=== PATIENT | female | born 1980 | race Caucasian/White ===

== ENCOUNTER 2019-02-20 00:54 | Outpatient (CLI) | payer BC, SELFPAY ==
--- NOTE | 2019-02-20 13:22 | DI.MAMMO_ITS ---
EXAM: MAMMO SCREENING CLINICAL HISTORY: SCREENING Z12.31 TECHNIQUE: Mammograms were interpreted according to the usual protocol including computer analysis w [employer] CAD system, tomosynthesis and C-view imaging. COMPARISON: Baseline. FINDINGS: The breasts are heterogeneously dense. No dominant mass or clumped microcalcification identified in either breast. Today's examination is a baseline examination. IMPRESSION: No specific evidence of malignancy at this time. Routine screening examinations are suggested at year ly intervals in this age group according to the ACS/ACR guidelines. Category 1. Breast density, categ ory C. BI-RADS Cat 1 - Negative. Breast Density - Category C - Heterogeneously dense.
== END 2019-02-20 01:14 ==
PROVIDERS: PCP Internal Medicine; Visit Provider Nurse Practitioner Women's Health
DX: Z12.31 Encounter for screening mammogram for malignant neoplasm of breast (principal)
CPT/HCPCS: 77063; 77067

== ENCOUNTER 2019-06-30 13:17 | Outpatient (CLI) | payer BC, SELFPAY ==
--- NOTE | 2019-06-30 13:00 | DI.RAD_ITS ---
EXAM: XR KNEE LT 3V AP,LAT,JOÃO INDICATION: L knee pain. COMPARISON: LEFT KNEE 3 VIEW COMPLETE from 10/25/2010 TECHNIQUE: 2D digital imaging was performed. FINDINGS: Hardware is again noted in the proximal tibia. There is prominent periarticular spurring from the fe moral condyles. Spurring is also noted at the tibial spines. There is slight deformity of the later al tibial plateau related to the old tibial plateau fracture. Spurring is also noted at the articula r aspect of the patella. IMPRESSION: Postsurgical and degenerative changes. DATA REPOSITORY: RADIATION DOSE DELIVERED:
== END 2019-06-30 13:37 ==
PROVIDERS: PCP Internal Medicine; Visit Provider Physician Assistant
DX: M25.562 Pain in left knee (principal); M17.12 Unilateral primary osteoarthritis, left knee; Z98.890 Other specified postprocedural states
CPT/HCPCS: 73562

== ENCOUNTER 2021-07-18 14:24 | Outpatient (REF) | payer BC, SELFPAY ==
--- NOTE | 2021-07-18 13:30 | PAPFT_PTH ---
PATIENT: Shaila Curtis LOC: [facility]#:[id number] AGE/SX: 41/F ROOM: RE07/18/[address]: Barb Garnett : 1980 BED: DIS: 07/18/2021 SPEC #: [id number] RECD: 07/19/21 12:53 STATUS: CUCA REIssa #: [id number] CESAR: 07/18/21 13:[address]: Barb Garnett DEPT: [facility] Cytology RECD BY: Namrata Patino Tissues: 1 - CX/ENDOCX FOR PAP SMEARS Procedures: PAP THIN PREP/UVM Screening HPV DNA PROBE Comments: [id number]
[2021-07-18 21:13] LABS: Calculated LDL 128 mg/dL (<100); Cholesterol 208 mg/dL (<200); HDL Cholesterol 44 mg/dL (40-60); Triglyceride 182 mg/dL (<150)
== END 2021-07-18 14:25 | disposition home or self-care (01) ==
LOC: NCHCN 14:24
PROVIDERS: PCP Nurse Practitioner Family; Visit Provider Nurse Practitioner Family
DX: Z12.4 Encounter for screening for malignant neoplasm of cervix (principal); Z11.51 Encounter for screening for human papillomavirus (HPV); Z00.00 Encounter for general adult medical examination without abnormal findings; N20.0 Calculus of kidney
CPT/HCPCS: 80061; 88142; 87624

== ENCOUNTER 2021-11-21 16:46 | Outpatient (REF) | payer BC, SELFPAY ==
[2021-11-22 15:21] LABS: Chlamydia Result Negative (Negative); GC Result Negative (Negative)
== END 2021-11-21 16:47 | disposition home or self-care (01) ==
LOC: LBN 16:46
PROVIDERS: PCP Nurse Practitioner Family; Visit Provider Obstetrics & Gynecology
DX: Z11.3 Encounter for screening for infections with a predominantly sexual mode of transmission (principal); Z30.430 Encounter for insertion of intrauterine contraceptive device
CPT/HCPCS: 87491; 87591

== ENCOUNTER → 2023-08-01 03:31 | Outpatient (CLI) | payer BC, SELFPAY ==
--- NOTE | 2023-08-01 | DI.MAMMO_ITS ---
Exam(s) MAMMO SCREENING EXAM: MAMMO SCREENING 2019 CLINICAL HISTORY: Z12.31 Encounter for screening mammogram for malignant neoplasm of breast TECHNIQUE: Mammograms were interpreted according to the usual protocol including computer analysis w ith CAD system, tomosynthesis and C-view imaging. COMPARISON: 2019 FINDINGS: The breasts are composed of heterogeneously dense fibroglandular densities, Breast Density category C . No suspicious masses or suspicious microcalcifications are seen. No skin thickening or abnormal axillary lymph nodes are seen. There has been no significant change from prior exams. IMPRESSION: BI-RADS Category 1, Negative mammogram. Yearly screening mammography is recommended. Breast Density Category C, heterogeneously Dense. The mammogram demonstrates the patient's breast tissue is dense. Dense breast tissue is very common a nd is not abnormal but dense breast tissue can make it harder to find cancer on a mammogram. Also, de nse breast tissue may increase breast cancer risk. This information about the result of the mammogram report was provided to the patient to raise their awareness. Use this report when you speak with the patient about their risks for breast cancer, which includes their family history. At that time, you may recommend additional screening tests (Ultrasound or MRI) as they might be useful based on their r isk. A negative radiographic report should not delay biopsy if a dominant or clinically suspicious mass is present. Up to ten percent of cancers are not identified on mammography. A negative report may reinforce clinical impression. Adenosis and dense breasts may obscure an underlying neoplasm. False positive reports average 6 to 10%.
== END ==
PROVIDERS: PCP Nurse Practitioner Family; Visit Provider Nurse Practitioner Family
DX: Z12.31 Encounter for screening mammogram for malignant neoplasm of breast (principal)
CPT/HCPCS: 77063; 77067

== ENCOUNTER 2023-10-16 12:23 | Outpatient (REF) | payer BC, SELFPAY ==
--- NOTE | 2023-10-16 13:45 | SKI_PTH ---
PATIENT: Shaila Curtis LOC: [facility]#:[id number] AGE/SX: 43/F ROOM: RE10/16/[address]: Barb Garnett : 1980 BED: DIS: 10/16/2023 SPEC #: [id number] RECD: 10/17/23 12:48 STATUS: CUCA REIssa #: [id number] CESAR: 10/16/23 13:[address]: Barb Garnett DEPT: Surgical Specimen RECD BY: Namrata Patino Tissues: 1 - SKIN BIOPSY(SHAVE/PUNCH) 2 - SKIN BIOPSY(SHAVE/PUNCH) Procedures: IMMUNOPEROXIDASE STAIN SKIN LEVEL 4 Comments: [id number]
== END 2023-10-16 12:24 | disposition home or self-care (01) ==
LOC: NCHCN 12:23
PROVIDERS: PCP Nurse Practitioner Family; Visit Provider Nurse Practitioner Family
DX: D22.72 Melanocytic nevi of left lower limb, including hip (principal); D23.72 Other benign neoplasm of skin of left lower limb, including hip
CPT/HCPCS: 88305; 88361

== ENCOUNTER 2024-08-25 00:20 | Outpatient (CLI) | payer BC, SELFPAY ==
--- NOTE | 2024-08-25 | DI.MAMMO_ITS ---
Exam(s) MAMMO SCREENING EXAM: MAMMO SCREENING CLINICAL HISTORY: SCREENING MAMMO, Z12.31 TECHNIQUE: Mammograms were interpreted according to the usual protocol including computer analysis w [employer] CAD system, tomosynthesis and C-view imaging. COMPARISON: 2018 and 2023 FINDINGS: The breasts are composed of scattered fibroglandular densities, Breast Density category B. No suspicious masses or suspicious microcalcifications are seen. No skin thickening or abnormal axillary lymph nodes are seen. There has been no significant change from prior exams. IMPRESSION: BI-RADS Category 1, Negative mammogram Yearly screening mammography is recommended. Breast Density - Category B, scattered fibroglandular densities. A negative radiographic report should not delay biopsy if a dominant or clinically suspicious mass is present. Up to ten percent of cancers are not identified on mammography. A negative report may reinforce clinical impression. Adenosis and dense breasts may obscure an underlying neoplasm. False positive reports average 6 to 10%. Patient will receive a letter notifying them of these results.
== END 2024-08-25 00:40 ==
LOC: DI 00:20
PROVIDERS: PCP Nurse Practitioner Family; Visit Provider Nurse Practitioner Family
DX: Z12.31 Encounter for screening mammogram for malignant neoplasm of breast (principal); R92.323 Mammographic fibroglandular density, bilateral breasts
CPT/HCPCS: 77063; 77067

== ENCOUNTER 2024-09-01 13:43 | Outpatient (CLI) | payer BC, SELFPAY ==
--- NOTE | 2024-09-01 13:00 | DI.RAD_ITS ---
Exam(s) XR KNEE LT 4V AP,LAT,JOÃO,PAT EXAM: XR KNEE LT 4V AP,LAT,JOÃO,PAT CLINICAL HISTORY: LEFT KNEE PAIN. TECHNIQUE: 2D digital imaging was performed. Three views. COMPARISON: CR LEFT KNEE 3 VIEW COMPLETE from 10/25/2010 CR XR KNEE LT 3V AP,LAT,JOÃO from 06/30/2019 FINDINGS: BONES: No acute fracture is present. No bony destructive lesion is seen. There is stable positioni ng of the previously noted hardware in the proximal tibia. Prominent periarticular spurring is again noted throughout the knee. JOINTS: There is again irregularity at the lateral tibial plateau late old fracture. No joint effusi on is seen. SOFT TISSUE: Normal. IMPRESSION: Degenerative changes throughout the knee. DATA REPOSITORY: RADIATION DOSE DELIVERED:
== END 2024-09-01 13:44 | disposition home or self-care (01) ==
LOC: DIORS 13:44
PROVIDERS: PCP Nurse Practitioner Family; Referring Provider Nurse Practitioner Family; Visit Provider Student in an Organized Health Care Education/Training Program
DX: M17.32 Unilateral post-traumatic osteoarthritis, left knee (principal)
CPT/HCPCS: 73564

== ENCOUNTER 2024-10-21 09:47 | Day surgery (SDC) | payer BC, SELFPAY ==
[2024-10-21 10:11] VITALS: BP 110/76; PULSE 82; RESP 14; TEMP 36.4; O2SAT 98
[2024-10-21] MEDS: Lactated Ringers 1,000 ML 80 ML IV (10:30)
[2024-10-21] MEDS: Celecoxib 200 MG CAP 400 MG PO (10:36)
[2024-10-21] MEDS: Acetaminophen 500 MG TAB 1000 MG PO (10:36)
--- NOTE | 2024-10-21 10:40 | W.PREOPHP ---
Assessment and Plan Assessment and plan (1) Loose body in knee, left knee: Status: Acute (2) Post-traumatic osteoarthritis of left knee: Status: Acute Assessment and plan: Shaila is a 44-year-old active female who has known posttraumatic arthritis but has unfortunate developed mechanical catching and locking consistent with a loose body. Given the symptoms I recommend we proceed with arthroscopic loose body removal. I would also evaluate the meniscus for any loose or displaced fragments and treat this at the same time. The main goal is simply to stop this mechanical locking which is limiting her ability to function. I was very honest with Shaila that this does carry with the risk of potential arthritic progression and increase in baseline pain. I also discussed other risks such as bleeding, infection, stiffness, blood clot. Despite these risk, she elects to proceed. History of Present Illness Narrative: Shaila is a 44-year-old female who has known posttraumatic arthritis about the left knee from previous tibial plateau fracture and subsequent surgery. She has been managed with her arthritic pain with injections but more recently developed a mechanical catching and locking sensation indicative of loose body. Given the dysfunction this causes when it locks I recommend proceeding with arthroscopic loose body removal. She also has a known meniscal tear in the lateral side the knee which could also be causing some of the symptoms. She has known arthritis and thus the goal was simply to remove the impending loose body causing these mechanical symptoms. She has no other changes to her history. She has no recent sick contacts. No chest pain or shortness of breath Review of Systems All systems reviewed & are unremarkable except as noted in HPI and below PFSH All Active Problems Loose body in knee, left knee (Acute) Screening and evaluation for female sterilization (Acute) Post-traumatic osteoarthritis of left knee (Acute) Depo-Medrol injection: 08/20/23; 08/14/22; 02/13/2022; 07/29/21; 01/21/2021; 07/19/2020; 01/22/20 Recent Synvisc injection: 01/15/20 Medical History Bone spur Surgical History History of repair of ACL (R) Tibial plateau fracture, left (~09/2009) s/p ORIF Social History Smoking/Tobacco Use Status: Never Smoking risk assessment performed?: Yes Alcohol Intake: never Drug use: Never Substance use type: does not use Housing: house Current gender identity: female Do you feel safe at home: Yes Do you feel safe in your relationship?: Yes Female Reproductive History Menstrual Age of Menarche: 12 control method: progesterone injection History History 0 Para Hx # Term Pregnancies Multiple births Hx # Pregnancies Ectopic pregnancies AB induced Hx Number of Living Children AB spontaneous Meds Allergies and Home Medications Allergies Allergy/AdvReac Type Severity Reaction Status Date / Time No Known Allergies Allergy Verified 10/21/24 10:06 Home Medications ?Medication ?Instructions ?Recorded ?Confirmed ?Type multivitamin (Daily Multi-Vitamin 1 tab PO DAILY 09/15/21 10/21/24 History tablet) levonorgestrel 21 mcg/24 hr (up to 1 device intrauterine ONCE 11/21/21 10/21/24 History 8 years) 52 mg intrauterine device (Mirena) Exam Const General: cooperative, healthy appearing, comfortable and no acute distress Resp Effort & Inspection: normal respiratory effort Auscultation: clear to auscultation bilaterally Cardio Rate: regular rate Rhythm: regular rhythm Results Last Vital Signs Temp 36.4 C L 10/21/24 10:11 Pulse 82 10/21/24 10:11 Resp 14 10/21/24 10:11 BP 110/76 10/21/24 10:11 Pulse Ox 98 10/21/24 10:11
--- NOTE | 2024-10-21 10:58 | W.ANESPRE ---
General Info Date of Service Date Performed: 10/21/24 Height: 5 ft 2 in Weight: 51.1 kg Body Mass Index (BMI): 20.6 Surgical Procedure: Operation Date: 10/21/24 13:10 Proposed Procedure Side Surgeon p Knee Arthroscopy, Loose Body Removal Left Ja Huertas MD Meds Allergies and Home Medications Allergies Allergy/AdvReac Type Severity Reaction Status Date / Time No Known Allergies Allergy Verified 10/21/24 10:06 Home Medication ?Medication ?Instructions ?Recorded multivitamin (Daily Multi-Vitamin 1 tab PO DAILY 09/15/21 tablet) levonorgestrel 21 mcg/24 hr (up to 1 device intrauterine ONCE 11/21/21 8 years) 52 mg intrauterine device (Mirena) Current Visit Medications: Current Medications Generic Name Dose Route Start Last Admin Trade Name Freq PRN Reason Stop Dose Admin Acetaminophen 1,000 mg 10/21/24 06:00 10/21/24 10:36 Acetaminophen 500 Mg Tab PO 10/21/24 23:59 1,000 mg PREOP BETTYE Administration Celecoxib 400 mg 10/21/24 06:00 10/21/24 10:36 Celecoxib 200 Mg Cap PO 10/21/24 23:59 400 mg PREOP BETTYE Administration Ringer's Solution 1,000 mls @ 80 mls/hr 10/21/24 06:00 10/21/24 10:30 IV 10/21/24 23:59 80 mls/hr INFUSION BETTYE Administration Cefazolin Sodium/Dextrose 2 gm in 50 mls @ 100 mls/hr 10/21/24 06:00 Ancef Duplex IVPB 10/21/24 23:59 PREOP BETTYE Tranexamic Acid/Sodium Chloride 1,000 mg in 100 mls @ 600 mls/hr 10/21/24 06:00 IVPB 10/21/24 23:59 PREOP BETTYE IV Miscellaneous Supplies 1 each 10/21/24 06:00 Iv Access IV 10/21/24 23:59 DIRECTED BETTYE Sodium Chloride 0 ml 10/21/24 06:00 Normal Saline Flush 10 Ml Syr IV 10/21/24 23:59 PRN PRN Sodium Chloride 0 ml 10/21/24 06:00 Normal Saline 10 Ml Vial IJ 10/21/24 23:59 DIRECTED PRN Sterile Water 0 ml 10/21/24 06:00 Water,Injection,Sterile 10 Ml Vial IJ 10/21/24 23:59 DIRECTED PRN PFSH Active Problems Active Problems: Problem Status Onset Code Loose body in knee, left knee Acute M23.42 Screening and evaluation for female sterilization Acute Z30.09 Post-traumatic osteoarthritis of left knee Acute M17.32 Medical History Medical History Bone spur Surgical History Surgical History History of repair of ACL (R) Tibial plateau fracture, left (~09/2009) s/p ORIF Tobacco Smoking/Tobacco Use Status: Never Passive smoking exposure: Yes Alcohol Alcohol Intake: never Substance Use Substance use: Never Substance use type: does not use Prental History History 0 Para Hx # Term Pregnancies Multiple births Hx # Pregnancies Ectopic pregnancies AB induced Hx Number of Living Children AB spontaneous Vital Signs and Lab Results Vital Signs Most Recent Vital Signs in EMR: Most Recent Vital Signs Temp Pulse Resp BP Pulse Ox 36.4 C L 82 14 110/76 98 10/21/24 10:11 10/21/24 10:11 10/21/24 10:11 10/21/24 10:11 10/21/24 10:11 Anesthesia Assessment and Plan Anesthesia History Personal History: PONV Family History: No Family History of Anesthesia Complications Exercise Tolerance Exercise Tolerance: Metabolic Equivalents>4 Pertinent Negatives Pertinent Negatives: No Symptoms of GERD, No Major Cardiovascular Symptoms or Complaints, No Major Pulmonary Symptoms or Complaints and No History of CVA/TIA Cardiac & Pulmonary Exam Cardiac Exam: Normal S1/S2 Heart Sounds Pulmonary Exam: Clear Bilateral Breath Sounds Implantable Cardiac Device Does patient have a Pacemaker or an ICD?: No Airway Exam Known Difficult Airway: No Mallampati Class: 1 Mouth Opening: Normal (> 3cm) Thyromental Distance: Greater than 3 cm Neck Range of Motion: Full ROM Neck Circumference: Normal Teeth Condition: Normal Dentition ASA Classification ASA Score: ASA 1 Emergency Case?: No NPO Status NPO Status: NPO Clears >2 hours, Solids >8 hours Status Status: Not Per Patient and Pt. refuses testing, she was counseled on anesthesia risks Anesthesia Plan Resuscitation Status: Full Code Anesthesia Technique: General Anesthesia Airway Planned: LMA Monitors Used: Standard Monitors
[2024-10-21 11:01] VITALS: BMI 20.6
[2024-10-21] MEDS: ceFAZolin 2 GM/50 ML BAG IVPB (12:05)
--- NOTE | 2024-10-21 12:16 | ROE_ITS ---
Operative Note Operative Note PRE-OP DIAGNOSIS: Left Knee Loose Bodies, Post-Traumatic Arthritis POST-OP DIAGNOSIS: other (Loose cartilage flaps medial femur and lateral tibia) PROCEDURE: Arthroscopic chondroplasty of medial femur and lateral tibia, left knee SURGEON: Ja Huertas ANESTHESIA TYPE: General LMA/ETT Refer to Anesthesia Record ESTIMATED BLOOD LOSS: 0 PATHOLOGY: none sent COMPLICATIONS: None Patient was transported to: PACU Patient's condition: stable Indications: I have seen Shaila in clinic for mechanical symptoms of locking and catching consistent with a loose body in the setting of post-traumatic arthritis. Nonoperative measures were exhausted but disability and pain persisted. I discussed knee arthroscopy with loose body removal and potential partial menisectomy as indicated with the patient. I reviewed the risks of the procedure to include, but not limited to, bleeding, infection, pain, stiffness, damage to nerves or vessels, recurrence, blood clot. Despite these risks, the patient elected to proceed. Findings: A diagnostic arthroscopy was performed with the following findings: Suprapatellar Pouch: Moderate inflammation, No loose bodies Medial Compartment: Some minor fraying of the central portion of the meniscus but no discrete tear, Intact meniscal root, large displaced fragment from the central portion of the weightbearing medial femur flipped on itself posteriorly with a second smaller flap seen at the very posterior aspect of the medial femur, No loose bodies Notch: Tearing of the PCL and ACL with some few intact fibers Lateral Compartment: Fraying anteriorly within the lateral meniscus, Intact meniscal root, irregularity of the cartilage surface with a large chondral flap posterior laterally, No loose bodies Patellofemoral Compartment: Area of near full-thickness cartilage loss of the lateral patella and lateral femur, mild lateral maltracking Procedure Description: Shaila was greeted in the preoperative holding area where the correct side was identified and marked. The consent was reviewed with the patient and signed. The history and physical was updated. All questions were answered. She was taken back to the operating room. The patient was placed into the supine position on the operating room table. All bony prominences were well padded. Prophylactic antibiotics in the form of Cefazolin were administered. The left leg was then prepped with Chloraprep and draped in a standard fashion with stockinette and extremity drape. A timeout to confirm correct identity, side and site, procedure, allergies, anesthesia, and medical concerns was performed. A standard lateral portal was made at the lateral border of the patella tendon in line with the inferior pole of the patella, soft spot. The skin and deep tissue was incised sharply and the blunt trochar was inserted atraumatically. A diagnostic arthroscopy was performed and the findings are listed above. The suprapatellar pouch had moderate inflammatory change. 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 The lateral gutter had no loose bodies and the medial gutter had no loose bodies. The knee was brought into some valgus stress in extension to open the medial compartment. A medial portal was made, localized by a spinal needle. The portal was created with an #11 blade through skin and capsule under direct visualization avoiding any meniscal injury. A probe was then inserted into the medial compartment. The medial compartment was fully inspected. Visualization was challenging due to a large amount of tissue inside the medial compartment. Under further probing this was actually a displaced flap of cartilage from the medial?central femur. I thus used a biter and [place] to debride this unstable piece of cartilage back to a stable base. Once this large flap was removed I was able to visualize the medial compartment more completely. There is grade II chondromalacia of the medial tibia. There is some mild fraying of the central portion of the medial meniscus but no discrete, unstable tear. With further flexion, there is some noted chondromalacia, grade 4, of the posterior aspect of the femur with a very small but loose fragment of cartilage which was also debrided to a stable base. While visualizing the medial compartment and using a probe to penetrate any the deep recesses posterior to the meniscus I milked the popliteal fossa. I was unable to express any loose bodies. The remainder of the tissue was probed and there is no unstable cartilage or meniscus. The notch was then inspected which showed fraying of the ACL and the PCL. These appear to be partial tears as there were some intact fibers. Loose fibers were debrided down. The leg was then brought into a figure of 4 position. The lateral compartment was fully inspected with the arthroscope and a probe. The chondral surface of the lateral femur showed grade II chondromalacia. The chondral surface of the lateral tibia showed notable irregularity. V isualization of the far lateral aspect was challenging as there was a large loose piece of cartilage arising from the lateral tibia. There is some irregularity with the lateral tibial surface. There is also some tearing of the lateral meniscus mostly within the central portion. The lateral meniscus had no unstable fragments or tears. Cartilage surfaces were debrided of any flaps, leaving any intact fibers. The arthroscope was brought back into the suprapatellar pouch and the leg was in full extension. The knee was thoroughly irrigated with the arthroscopic fluid on high flow and pressure. Inflow was stopped and excess fluid was removed. The wounds were closed with 4-0 Nylon. They were dressed with Xeroform, 4x4 gauze, ABD pad, Kerlix and an JULIENNE wrap. A cryo-cuff was applied. The patient tolerated the procedure well and was returned to the Same Day Surgery area in a stable condition suffering no known complication. Date of Procedure: 10/21/24
[2024-10-21] MEDS: TRANEXAMIC ACID/SOD. CHL. 1,000 MG/100 ML BAG 600 MG IVPB (12:17)
[2024-10-21] MEDS: Bupivacaine 0.25% Pres-Free 30 ML VIAL (12:40)
[2024-10-21] MEDS: EPINEPHrine 10 MG/10 ML ML (12:40)
--- NOTE | 2024-10-21 12:42 | W.PM.DSUDISC ---
Date of service: 10/21/24 Discharge Plan Disposition Patient Disposition: Home Condition: Good Discharge Details Reason For Visit: Left knee loose body Attending Provider: Ja Huertas Primary Care Provider: Barb Garnett Home Meds and New Rx's Prescriptions: New hydrocodone-acetaminophen 5-325 mg tablet 1 tab PO Q6H PRN (Reason: severe pain) Qty: 6 0RF Rx Instructions: Take one tablet up to every 6 hours as needed for severe postoperative pain acetaminophen 500 mg tablet 500 mg PO Q6H PRN (Reason: pain) Qty: 60 2RF ibuprofen 600 mg tablet 600 mg PO TID PRN (Reason: pain) Qty: 60 0RF Continued multivitamin [Daily Multi-Vitamin] Tablet 1 tab PO DAILY Mirena 20 mcg/24 hours (7 yrs) 52 mg intrauterine device 1 device intrauterine ONCE Patient Comments: placed 2 years ago Rx Instructions: as a single dose Discharge Instructions Stand Alone Forms: Kiya Knee Arthroscopy Equipment/Supplies: Partial Weight Bearing Crutches Activity:: Elevate Remove Dressings/Wound Care:: 72 hours Shower/Bathe:: 72 hours Diet:: As Tolerated Discharge Orders Discharge Orders: Discharge Order (Routine); Ordered 10/21/24 Ordered By: Mayra Hylton DS: Diagnosis Discharge Diagnosis (1) Loose body in knee, left knee: Status: Acute (2) Post-traumatic osteoarthritis of left knee: Status: Acute
[2024-10-21 13:06] VITALS: TEMP 36.4
[2024-10-21 13:21] VITALS: TEMP 36.7
--- NOTE | 2024-10-21 13:43 | W.ANESPOSTOP ---
Postoperative Evaluation Date, Time and Location Date Performed: 10/21/24 Time Performed: 13:43 Patient Location: PACU Vital Signs Most Recent Imported Vital Signs: Most Recent Vital Signs Temp Pulse Resp BP Pulse Ox 36.7 C 82 14 110/76 98 10/21/24 13:21 10/21/24 10:11 10/21/24 10:11 10/21/24 10:11 10/21/24 10:11 Pain Score Most Recent Pain Score: Most Recent Pain Score Pain Level 6 10/21/24 13:35 Assessment Mental Status: Arousable with meaningful communication Airway and Respiratory Function: Patent airway with normal (patient baseline) respiratory exam Cardiovascular Function: Hemodynamically Stable Hydration Status: Adequately Hydrated Nausea & Vomiting: No Nausea or Vomiting Pain: Pain is tolerable per patient Peripheral Nerve Block: Patient did not receive a nerve block
[2024-10-21 13:48] VITALS: BP 104/78; PULSE 62; RESP 16; TEMP 36.2; O2SAT 100
[2024-10-21] MEDS: Acetaminophen 325 MG TAB 650 MG PO (14:11)
[2024-10-21 14:25] VITALS: BP 109/78; PULSE 59; RESP 12; TEMP 36.4; O2SAT 100
== END 2024-10-21 15:00 | disposition home or self-care (01) ==
PROVIDERS: PCP Nurse Practitioner Family; Visit Provider Student in an Organized Health Care Education/Training Program
PROC: (CPT 29870; principal; 2024-10-21 13:00)
DX: M23.42 Loose body in knee, left knee (principal); M17.32 Unilateral post-traumatic osteoarthritis, left knee; M25.562 Pain in left knee
CPT/HCPCS: 29877; J0665; J0690; J1100; J1885; J2003; J2250; J2405; J2704

== ENCOUNTER 2024-11-17 09:53 | Day surgery (SDC) | payer BC, SELFPAY ==
--- NOTE | 2024-11-16 18:24 | PDOC.DSDIS_ITS ---
Date of service: 11/17/24 Discharge Plan Disposition Patient Disposition: Home Condition: Good Discharge Details Reason For Visit: screening colonoscopy Attending Provider: Manuelito Case Primary Care Provider: Barb Garnett Home Meds and New Rx's Prescriptions: Continued multivitamin [Daily Multi-Vitamin] Tablet 1 tab PO DAILY Mirena 20 mcg/24 hours (7 yrs) 52 mg intrauterine device 1 device intrauterine ONCE Patient Comments: placed 2 years ago Rx Instructions: as a single dose aspirin 81 mg tablet 81 mg PO DAILY acetaminophen 500 mg tablet 500 mg PO Q6H PRN (Reason: pain) Qty: 60 2RF ibuprofen 600 mg tablet 600 mg PO TID PRN (Reason: pain) Qty: 60 0RF Discontinued bisacodyl [Dulcolax (bisacodyl)] 5 mg tablet,delayed release (DR/EC) 5 mg PO ONCE Qty: 4 0RF Rx Instructions: Take per colonoscopy instructions provided by ordering providers office polyethylene glycol 3350 17 gram/dose powder 17 g PO ONCE Qty: 238 0RF Rx Instructions: Take per colonoscopy instructions provided by ordering providers office Discharge Instructions Additional Instructions: Shaila, It was very nice meeting you today, and I hope you feel well after the procedure. Things went very smoothly. Your prep was outstanding, we could see everything fine. I did not see any signs of tumors, polyps, or any other worrisome pathology. With an uncertain family history, I would recommend a 5- year interval for your next screening colonoscopy. If that remains normal, we could give stronger consideration to spacing them out a bit more. If you need anything or have any questions at all, please do not hesitate to ask at any time. 1. If tolerated, consume a soft, low fiber diet for 1-2 days. 2[address] Do not drive, drink alcohol, operate machinery, make critical decisions, or do activities that require coordination or balance for 24 hours. 3. Because air was put into your colon during the procedure, expelling air from your rectum (passing gas or farting) is normal. 4. You may not have a bowel movement for 1-3 days because of the colonoscopy prep. This is normal. 5. Go directly to the emergency room if you notice any of the following: Develop chills (warm to touch), or if you have a thermometer and your temperature is above 101 Difficulty breathing or difficultly swallowing Persistent vomiting Severe abdominal pain, other than gas cramps Severe chest pain Black, tarry stools Any bleeding ? exceeding one tablespoon 6. Call your physician if the site where your intravenous was started becomes red, swollen, painful, and warm to touch. 7. Your physician has reviewed your pre-procedure medications. Please continue to take those medications as previously ordered. You will be given specific information/education regarding any changes to your medications before leaving. Activity:: Activity as Tolerated Diet:: As Tolerated Discharge Orders Discharge Orders: Discharge Order (Routine); Ordered 11/16/24 Ordered By: Manuelito Case DS: Diagnosis Discharge Diagnosis (1) Encounter for screening colonoscopy: Status: Acute Asessment and Plan: Negative screening colonoscopy
--- NOTE | 2024-11-16 18:26 | W.COLOREPORT ---
Date of service: 11/17/24 Time of Service: 12:02 Colonoscopy Report Date of procedure: 11/17/24 Pre-op diagnosis general: screening colonoscopy Post-op diagnosis procedure note: other (Negative screening colonoscopy) Procedure: colonoscopy Surgeon: Manuelito Case Anesthesia Type: General:No Airway Estimated blood loss (mL): 0 Complications: None Disposition: same day Indications: Shaila is a 44 year old woman. Prep: Miralax/Dulcolax Procedure Start Time: 11:44 Procedure End Time: 11:57 Retraction Time: 7 Findings: Negative screening colonoscopy Procedure Description: After the induction of monitored anesthetic care, and with the patient in left lateral decubitus position, I began by performing an external anorectal exam.? Perineum and skin were normal, as was the anal verge.? There are some evidence of external hemorrhoids.? Next, I performed a digital rectal exam.? This was normal.? Next, I advanced a colonoscope into the rectal vault.? I performed retroflexion.? This appeared normal.? Using insufflation, I then advanced the colonoscope beyond the rectal folds and into the sigmoid colon before advancing towards the cecum.? The quality of the prep was excellent.? The scope was noted to be in the cecum by identification of the ileocecal valve and appendiceal orifice.? I then began withdrawing the colonoscope using repeated irrigation as necessary for full evaluation of the colonic mucosa. ?Once the scope was withdrawn to the level of the rectum, great care was taken to examine portions of the rectal folds.? I saw no signs of tumors, polyps, or any other worrisome pathology. Finally, the scope was withdrawn and the patient was brought to the same-day surgery recovery unit as the anesthetic wore off. ?The findings and instructions were shared with the patient prior to discharge. [place] Bowel Prep [place] Bowel Prep Right Colon: 3 Left Colon: 3 Transverse Colon: 3 Total Score: 9
[2024-11-17 10:05] VITALS: BP 111/81; PULSE 85; RESP 16; TEMP 36.4; O2SAT 100
[2024-11-17] MEDS: Lactated Ringers 1,000 ML 80 ML IV (11:10)
--- NOTE | 2024-11-17 11:37 | W.ANESPRE ---
General Info Date of Service Date Performed: 11/17/24 Height: 5 ft 2 in Weight: 51.5 kg Body Mass Index (BMI): 20.7 Surgical Procedure: Operation Date: 11/17/24 11:20 Proposed Procedure Side Surgeon p Colonoscopy Manuelito Case MD Actual Procedure Side Surgeon p Colonoscopy Not Applicable Manuelito Case MD Pre-Op Diagnosis Post-Op Diagnosis screening colonoscopy Meds Allergies and Home Medications Allergies Allergy/AdvReac Type Severity Reaction Status Date / Time No Known Allergies Allergy Verified 11/17/24 10:36 Home Medication ?Medication ?Instructions ?Recorded multivitamin (Daily Multi-Vitamin 1 tab PO DAILY 09/15/21 tablet) levonorgestrel (Mirena) 1 device intrauterine ONCE 11/21/21 acetaminophen 500 mg tablet 500 mg PO Q6H PRN pain #60 tabs 10/21/24 ibuprofen 600 mg tablet 600 mg PO TID PRN pain #60 tabs 10/21/24 aspirin 81 mg tablet 81 mg PO DAILY 10/30/24 Current Visit Medications: Current Medications Generic Name Dose Route Start Last Admin Trade Name Daronq PRN Reason Stop Dose Admin Ringer's Solution 1,000 mls @ 80 mls/hr 11/17/24 06:00 11/17/24 11:10 IV 11/17/24 23:59 80 mls/hr INFUSION BETTYE Administration IV Miscellaneous Supplies 1 each 11/17/24 06:00 Iv Access IV 11/17/24 23:59 DIRECTED BETTYE Ondansetron HCl 4 mg 11/16/24 18:27 Ondansetron 4 Mg/2 Ml Vial IVP 12/16/24 18:26 Q4H PRN PRN Nausea / Vomiting Sodium Chloride 0 ml 11/17/24 06:00 Normal Saline Flush 10 Ml Syr IV 11/17/24 23:59 PRN PRN Sodium Chloride 0 ml 11/17/24 06:00 Normal Saline 10 Ml Vial IJ 11/17/24 23:59 DIRECTED PRN Sterile Water 0 ml 11/17/24 06:00 Water,Injection,Sterile 10 Ml Vial IJ 11/17/24 23:59 DIRECTED PRN PFSH Active Problems Active Problems: Problem Status Onset Code S/P left knee arthroscopy Acute Z98.890 Encounter for screening colonoscopy Acute Z12.11 Screening and evaluation for female sterilization Acute Z30.09 Post-traumatic osteoarthritis of left knee Acute M17.32 Medical History Medical History Bone spur Surgical History Surgical History History of repair of ACL (R) Tibial plateau fracture, left (~09/2009) s/p ORIF Tobacco Smoking/Tobacco Use Status: Never Passive smoking exposure: Yes Alcohol Alcohol Intake: never Substance Use Substance use: Never Substance use type: does not use Prental History History 0 Para Hx # Term Pregnancies Multiple births Hx # Pregnancies Ectopic pregnancies AB induced Hx Number of Living Children AB spontaneous Vital Signs and Lab Results Vital Signs Most Recent Vital Signs in EMR: Most Recent Vital Signs Temp Pulse Resp BP Pulse Ox 36.4 C L 85 16 111/81 100 11/17/24 10:05 11/17/24 10:05 11/17/24 10:05 11/17/24 10:05 11/17/24 10:05 Anesthesia Assessment and Plan Anesthesia History Personal History: PONV Family History: No Family History of Anesthesia Complications Exercise Tolerance Exercise Tolerance: Metabolic Equivalents>4 Pertinent Negatives Pertinent Negatives: No Symptoms of GERD, No Major Cardiovascular Symptoms or Complaints, No Major Pulmonary Symptoms or Complaints and No History of CVA/TIA Cardiac & Pulmonary Exam Cardiac Exam: Normal S1/S2 Heart Sounds Pulmonary Exam: Clear Bilateral Breath Sounds Implantable Cardiac Device Does patient have a Pacemaker or an ICD?: No Airway Exam Known Difficult Airway: No Mallampati Class: 1 Mouth Opening: Normal (> 3cm) Thyromental Distance: Greater than 3 cm Neck Range of Motion: Full ROM Neck Circumference: Normal Teeth Condition: Normal Dentition ASA Classification ASA Score: ASA 2 Emergency Case?: No NPO Status NPO Status: NPO Clears >2 hours, Solids >8 hours Status Status: Pt. refuses testing, she was counseled on anesthesia risks Anesthesia Plan Resuscitation Status: Full Code Anesthesia Technique: General Anesthesia Airway Planned: Natural Airway Monitors Used: Standard Monitors
[2024-11-17 11:41] VITALS: BMI 20.7
[2024-11-17 12:01] VITALS: BP 102/77; PULSE 76; RESP 17; TEMP 36.3; O2SAT 99
[2024-11-17 12:29] VITALS: BP 98/74; PULSE 70; RESP 20; TEMP 36; O2SAT 99
--- NOTE | 2024-11-17 12:31 | W.ANESPOSTOP ---
Postoperative Evaluation Date, Time and Location Date Performed: 11/17/24 Time Performed: 12:29 Patient Location: Day Surgery Unit Vital Signs Most Recent Imported Vital Signs: Most Recent Vital Signs Temp Pulse Resp BP Pulse Ox 36.0 C L 70 20 98/74 L 99 11/17/24 12:29 11/17/24 12:29 11/17/24 12:29 11/17/24 12:29 11/17/24 12:29 Pain Score Most Recent Pain Score: Most Recent Pain Score Pain Level 0 11/17/24 10:05 Assessment Mental Status: Awake (Alert & Oriented to Patient Baseline) Airway and Respiratory Function: Patent airway with normal (patient baseline) respiratory exam Cardiovascular Function: Hemodynamically Stable Hydration Status: Adequately Hydrated Nausea & Vomiting: No Nausea or Vomiting Pain: Pt. Denies Any Pain Peripheral Nerve Block: Patient did not receive a nerve block
== END 2024-11-17 12:50 | disposition home or self-care (01) ==
LOC: SUR 09:53
PROVIDERS: PCP Nurse Practitioner Family; Visit Provider Surgery
PROC: 0DJD8ZZ Inspection of Lower Intestinal Tract, Via Natural or Artificial Opening Endoscopic (ICD-10-PCS; CPT 45378; principal; 2024-11-17 11:15)
DX: Z12.11 Encounter for screening for malignant neoplasm of colon (principal)
CPT/HCPCS: 45378; J2003; J2405; J2704